=== PATIENT | male | born 1990 | race Caucasian/White ===

== ENCOUNTER 2020-11-13 21:20 | Emergency (ER) | payer OTHER ==
[2020-11-13] MEDS ORDERED: TORAdol 30 mg Injection IM ONE (22:01)
[2020-11-13] MEDS ORDERED: TORAdol 30 mg Injection ONE (22:03)
--- NOTE | 2020-11-13 22:06 | ERPHSYRPT ---
- History of Present Illness Source: patient Patient Subjective Stated Complaint: pt states, "I was shoveling grease at work and I felt a catch in my back, having lots of back pain now". Triage Nursing Assessment: pt c/o low back pain, pt was shoveling grease at work and felt a catch in his back. Rates his pain a 5 at rest but a 9 when ambulating. Pt states, "the pain is starting to radiate down my legs". 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 Pain is 5/10, sharp, and worse w movement. He does have some radiation to B posterior thighs. Pt denies incontinence/dysuria/hematuria/fever. He has had some lumbar pain in the past. Timing/Duration: other (2hr) Method of Injury: other (Shovelling grease) Quality: sharp Back Pain Location: lumbar spine Back Pain Radiation: upper legs Severity of Pain-Max: moderate Severity of Pain-Current: moderate Modifying Factors: Improves With: movement Associated Symptoms: lower back pain, No fever, No chills, No sweating, No urinary incontinence, No loss of bowel control, No constipation, No nausea, No vomiting, No problems urinating, No light-headedness, No dizziness, No numbness in legs/feet, No weakness, No sensory/motor loss, No tingling in legs/feet, No m uscle spasms Previous symptoms: other (Occ lumbar pain in the past) Allergies/Adverse Reactions: No Known Drug Allergies Allergy (Unverified 11/13/20 21:37) Home Medications: Vilazodone HCl [Viibryd] 20 mg PO DAILY 11/13/20 [History] Hx Tetanus, Diphtheria Vaccination/Date Given: Yes Hx Influenza Vaccination/Date Given: No Hx Pneumococcal Vaccination/Date Given: No Immunizations Up to Date: Yes Travel Risk - International Travel Have you traveled outside of the country in past 3 weeks: No - Coronavirus Screening Are you exhibiting any of the following symptoms?: No Close contact with a COVID-19 positive Pt in past 14-21 Days: No - Vaccine Status Have you recieved a Covid-19 vaccination: No - Review of Systems Constitutional: No Symptoms Eyes: No Symptoms Ears, Nose, & Throat: No Symptoms Respiratory: No Symptoms Cardiac: No Symptoms Abdominal/Gastrointestinal: No Symptoms Genitourinary Symptoms: No Symptoms Skin: No Symptoms Neurological: No Symptoms Psychological: No Symptoms Endocrine: No Symptoms Hematologic/Lymphatic: No Symptoms Immunological/Allergic: No Symptoms - Past Medical History Pertinent Past Medical History: Yes Neurological History: No Pertinent History ENT History: No Pertinent History Cardiac History: No Pertinent History Respiratory History: No Pertinent History Endocrine Medical History: No Pertinent History Musculoskeletal History: Fractures GI Medical History: No Pertinent History History: No Pertinent History Psycho-Social History: No Pertinent History Male Reproductive Disorders: No Pertinent History - Past Surgical History Past Surgical History: Yes Neuro Surgical History: No Pertinent History Cardiac: No Pertinent History Respiratory: No Pertinent History Gastrointestinal: No Pertinent History Genitourinary: No Pertinent History Musculoskeletal: Orthopedic Surgery Male Surgical History: No Pertinent History Other Surgical History: lt leg fx - Social History Smoking Status: Current every day smoker How long have you smoked: 2 Exposure to second hand smoke: No Drug Use: none Patient Lives Alone: No Significant Family History: no pertinent family hx - Nursing Vital Signs Nursing Vital Signs: Initial Vital Signs Temperature 98.5 F 11/13/20 21:28 Pulse Rate 92 H 11/13/20 21:28 Respiratory Rate 18 11/13/20 21:28 Blood Pressure 155/107 11/13/20 21:28 O2 Sat by Pulse Oximetry 95 11/13/20 21:28 Pain Scale Pain Intensity [Back] 5 Pain Intensity 5 - Physical Exam General Appearance: no apparent distress Eye Exam: PERRL/EOMI, eyes nml inspection Ears, Nose, Throat Exam: normal ENT inspection, TMs normal, pharynx normal, moist mucous membranes Neck Exam: normal inspection, non-tender, supple, full range of motion, No meningismus, No mass, No Brudzinski, No Kernig's, No carotid bruit Respiratory Exam: normal breath sounds, lungs clear, airway intact, No respiratory distress Cardiovascular Exam: regular rate/rhythm, normal heart sounds, normal peripheral pulses, No murmur Gastrointestinal Exam: soft, normal bowel sounds, No tenderness Back Exam: vertebral tenderness (Lumbar TTP/No pain w stiff leg raises/NVI) Extremity Exam: normal inspection, normal range of motion Peripheral Pulses: dorsalis-pedis (R): 2+, dorsalis-pedis (L): 2+ Neurologic Exam: alert, oriented x 3, cooperative, radiation officer II-XII nml as tested, normal mood/affect, nml cerebellar function, nml station & gait, sensation nml, motor deficits, sensory deficit Skin Exam: normal color, warm, dry SpO2 Interpretation: normal SpO2: 95 O2 Delivery: Room Air - Course Nursing assessment & vital signs reviewed: Yes Ordered Tests: Medication Summary Discontinued Medications Generic Name Dose Route Start Last Admin Trade Name Jossueq PRN Reason Stop Dose Admin Ketorolac Tromethamine 60 mg 11/13/20 22:01 11/13/20 22:05 Toradol 30 Mg Injection IM 11/13/20 22:02 60 mg STAT ONE Administration Ketorolac Tromethamine Confirm 11/13/20 22:03 Toradol 30 Mg Injection Administered 11/13/20 22:04 Dose 60 mg .ROUTE .[employer] ONE - Progress Progress Note: 11/13/20 22:07 60mg IM Toradol Counseled pt/family regarding: diagnosis, need for follow-up - Departure Departure Disposition: Home Clinical Impression: Lumbar strain Condition: Stable Critical Care Time: No Instructions: Low Back Pain (DC) Additional Instructions: Rest /Heat/massage No lifting over 15pounds for 1 week Follow up with family MD or company MD Forms: Work/School Release Form Prescriptions: Orphenadrine Citrate 100 mg [Norflex 100 MG Tablet] 100 mg PO BID PRN PRN #10 tab PRN Reason: Pain Ketorolac Tromethamine [Toradol] 10 mg PO TID PRN #10 tablet PRN Reason: Pain
[2020-11-13 22:25] VITALS: BP 136/92; PULSE 72
[2020-11-14 01:03] VITALS: O2SAT 95
== END 2020-11-13 22:30 | disposition home or self-care (01) ==
LOC: ED 21:20
DX: S39.012A Strain of muscle, fascia and tendon of lower back, initial encounter (principal); M54.5 Low back pain; X58.XXXA Exposure to other specified factors, initial encounter; Y93.H1 Activity, digging, shoveling and raking; Y92.89 Other specified places as the place of occurrence of the external cause; Y99.0 Civilian activity done for income or pay
CPT/HCPCS: 96372; 99283; J1885